=== PATIENT | female | born 1960 | race Caucasian/White ===

== ENCOUNTER 2016-10-17 07:40 | Outpatient (CLI) | payer OTHER | END 2016-10-17 20:00 | disposition home or self-care (01) | LOC: SMA 07:40 | PROVIDERS: ATTEND Family Medicine | DX: Z12.31 Encounter for screening mammogram for malignant neoplasm of breast (principal) | CPT/HCPCS: 77067; G0202 ==

== ENCOUNTER 2017-10-18 10:00 | Outpatient (CLI) | payer OTHER | END 2017-10-18 20:02 | disposition home or self-care (01) | LOC: SMA 10:00 | PROVIDERS: ATTEND Family Medicine | DX: Z12.31 Encounter for screening mammogram for malignant neoplasm of breast (principal) | CPT/HCPCS: 77067 ==